=== PATIENT | male | born 1945 ===

== ENCOUNTER → 2021-06-05 | Outpatient (CLI) | payer OTHER | END | disposition home or self-care (01) | LOC: LAB SHORT 11:39 | DX: L57.0 Actinic keratosis (principal) | CPT/HCPCS: 88305 ==

== ENCOUNTER 2022-05-29 11:49 | Emergency (ER) | payer OTHER ==
[~2022-05-29] VITALS: Ht 182.9 cm; Wt 77.1 kg
== END 2022-05-29 13:58 | disposition home or self-care (01) ==
LOC: ER 11:49
DX: H61.22 Impacted cerumen, left ear (principal); E11.9 Type 2 diabetes mellitus without complications
CPT/HCPCS: A9270

== ENCOUNTER 2023-06-30 09:54 | Emergency (ER) | payer OTHER ==
[~2023-06-30] VITALS: Ht 182.9 cm; Wt 77.1 kg
[2023-06-30 10:57] LABS: BASOPHILS ABSOLUTE AUTO 0.07 K/mm3 (0.00-0.23); BASOPHILS PERCENT AUTO 1 % (0-2); EOSINOPHILS ABSOLUTE AUTO 0.06 K/mm3 (0.00-0.68); EOSINOPHILS PERCENT AUTO 1 % (0-6); Hematocrit 34.2 % (37.0-53.0); Hemoglobin 11.6 g/dL (13.5-17.5); IMMATURE GRAN ABSOLUTE AUTO 0.06 K/mm3 (0.00-0.10); IMMATURE GRAN PERCENT AUTO 1 % (0-1); LYMPHOCYTES ABSOLUTE AUTO 1.71 K/mm3 (0.84-5.20); LYMPHOCYTES PERCENT AUTO 14 % (21-46); MONOCYTES ABSOLUTE AUTO 0.63 K/mm3 (0.16-1.47); MONOCYTES PERCENT AUTO 5 % (4-13); Mean Corpuscular HGB 30.6 pg (26.0-34.0); Mean Corpuscular HGB Conc 33.9 g/dL (31.5-36.5); Mean Corpuscular Volume 90 fL (80-100); Mean Platelet Volume 9.6 fL (9.1-12.4); NEUTROPHILS ABSOLUTE AUTO 9.46 K/mm3 (1.96-9.15); NEUTROPHILS PERCENT AUTO 79 % (41-73); Platelet Count 320 K/mm3 (150-400); RDW Coefficient Variation 11.9 % (11.7-14.2); RDW Standard Deviation 39.2 fL (35.1-46.3); Red Blood Cell Count 3.79 M/mm3 (4.30-5.90); White Blood Cell Count 11.99 K/mm3 (4.00-11.30)
[2023-06-30 11:09] LABS: Albumin, Blood 3.3 g/dL (3.4-5.0); Albumin/Globulin Ratio 0.8 (0.8-1.8); Bilirubin, Total 1.2 mg/dL (0.1-1.0); Bun/Creatinine Ratio 20.8 (12.0-20.0); Calcium, Blood 9.5 mg/dL (8.5-10.1); Creatinine, Blood 1.06 mg/dL (0.60-1.20); Globulin, Blood 4.2 g/dL (2.2-4.0); Potassium, Blood 4.2 mmol/L (3.5-5.5); Total Protein, Blood 7.5 g/dL (6.4-8.2)
[2023-06-30] MEDS ORDERED: AMOX-CLAV 875-1 EAC1 PO (12:28)
[2023-06-30 13:15] VITALS: BP 124/67
== END 2023-06-30 13:36 | disposition home or self-care (01) ==
LOC: ER 09:54
PROVIDERS: Physician Assistant
DX: E11.621 Type 2 diabetes mellitus with foot ulcer (principal); L97.529 Non-pressure chronic ulcer of other part of left foot with unspecified severity; I10 Essential (primary) hypertension
CPT/HCPCS: 73620; 80053; 85025; 85651; 86141; 99283-25

== ENCOUNTER → 2023-06-30 | Outpatient (CLI) | payer OTHER ==
[~2023-06-30] MED LIST: AMOX-CLAV 875-1 EAC1 PO
== END | disposition home or self-care (01) ==
LOC: LAB 18:04 → LAB SHORT 18:04
DX: L03.116 Cellulitis of left lower limb (principal)
CPT/HCPCS: 87070; 87075; 87205

== ENCOUNTER 2023-07-20 16:11 | Emergency (ER) | payer OTHER ==
[~2023-07-20] VITALS: Ht 180.3 cm; Wt 77.1 kg
[2023-07-20] MEDS ORDERED: Lisinopril2.5 MG (16:20)
[2023-07-20] MEDS ORDERED: METFORMIN HCL500 M2 PO (16:20)
[2023-07-20] MEDS ORDERED: SEMGLEE (Y100 UNIT/2 SC (16:21)
[2023-07-20 16:44] LABS: BASOPHILS ABSOLUTE AUTO 0.11 K/mm3 (0.00-0.23); BASOPHILS PERCENT AUTO 1 % (0-2); EOSINOPHILS ABSOLUTE AUTO 0.22 K/mm3 (0.00-0.68); EOSINOPHILS PERCENT AUTO 1 % (0-6); Hematocrit 39.6 % (37.0-53.0); Hemoglobin 13.6 g/dL (13.5-17.5); IMMATURE GRAN ABSOLUTE AUTO 0.08 K/mm3 (0.00-0.10); IMMATURE GRAN PERCENT AUTO 0 % (0-1); LYMPHOCYTES ABSOLUTE AUTO 0.69 K/mm3 (0.84-5.20); LYMPHOCYTES PERCENT AUTO 3 % (21-46); MONOCYTES ABSOLUTE AUTO 0.91 K/mm3 (0.16-1.47); MONOCYTES PERCENT AUTO 5 % (4-13); Mean Corpuscular HGB 30.9 pg (26.0-34.0); Mean Corpuscular HGB Conc 34.3 g/dL (31.5-36.5); Mean Corpuscular Volume 90 fL (80-100); Mean Platelet Volume 10.1 fL (9.1-12.4); NEUTROPHILS ABSOLUTE AUTO 18.35 K/mm3 (1.96-9.15); NEUTROPHILS PERCENT AUTO 90 % (41-73); Platelet Count 295 K/mm3 (150-400); RDW Coefficient Variation 12.3 % (11.7-14.2); RDW Standard Deviation 40.3 fL (35.1-46.3); White Blood Cell Count 20.36 K/mm3 (4.00-11.30)
[2023-07-20 17:17] LABS: Albumin, Blood 3.7 g/dL (3.4-5.0); Albumin/Globulin Ratio 0.9 (0.8-1.8); Beta-hydroxybutyrate 4.4 mg/dL (0.2-2.8); Bun/Creatinine Ratio 24.8 (12.0-20.0); Calcium, Blood 9.3 mg/dL (8.5-10.1); Creatinine, Blood 1.13 mg/dL (0.60-1.20); Globulin, Blood 3.9 g/dL (2.2-4.0); Potassium, Blood 4.1 mmol/L (3.5-5.5); Total Protein, Blood 7.6 g/dL (6.4-8.2)
[2023-07-20 17:35] LABS: Influenza A, PCR NEGATIVE (NEGATIVE); Influenza B, PCR NEGATIVE (NEGATIVE); Resp Syncytial Virus, PCR NEGATIVE (NEGATIVE); SARS-Cov-2 (COVID-19) PCR, MMC NEGATIVE (NEGATIVE)
[2023-07-20 18:40] LABS: Source, Urine Clean Catch
[2023-07-20 18:43] LABS: Bilirubin, Urine Neg (Neg); Blood, Urine 1+ (Neg); Glucose Qualitative, Urine 4+ (Neg); Ketones, Urine Neg (Neg); Leukocyte Esterase, Urine Neg (Neg); Nitrite, Urine Neg (Neg); Protein, Urine 1+ (Neg); Urobilinogen, Urine NORM (Normal)
[2023-07-20 18:50] LABS: Appearance, Urine Clear (Clear); Color, Urine Yellow (P-Yellow)
[2023-07-20 18:52] LABS: Red Blood Cells, Urine 0-2 /hpf (0-2)
[2023-07-20 18:53] LABS: Amorphous Light (0-Heavy); Bacteria Rare /hpf; Squamous Epithelial Cells Not Seen /hpf (Few)
[2023-07-20 19:00] VITALS: BP 122/72
== END 2023-07-20 19:26 | disposition home or self-care (01) ==
LOC: ER 16:11
PROVIDERS: Emergency Medicine
DX: E11.65 Type 2 diabetes mellitus with hyperglycemia (principal); E11.621 Type 2 diabetes mellitus with foot ulcer; L97.429 Non-pressure chronic ulcer of left heel and midfoot with unspecified severity; D72.829 Elevated white blood cell count, unspecified; Z20.822 Contact with and (suspected) exposure to COVID-19; Z79.899 Other long term (current) drug therapy; Z79.84 Long term (current) use of oral hypoglycemic drugs; Z79.4 Long term (current) use of insulin
CPT/HCPCS: 0241U; 73620; 80053; 81001; 82010; 82947; 85025; 87086; 93005; 93010; 96360; 96361; 99285-25; J7120

== ENCOUNTER 2023-07-29 19:10 | Emergency (ER) | payer OTHER ==
[~2023-07-29] VITALS: Ht 182.9 cm; Wt 75.8 kg
[~2023-07-29 19:10] MED LIST changes: +Lisinopril2.5 MG; +METFORMIN HCL500 M2 PO; +SEMGLEE (Y100 UNIT/2 SC
[2023-07-29 19:31] VITALS: BP 156/77
[2023-07-29 20:01] LABS: BASOPHILS ABSOLUTE AUTO 0.05 K/mm3 (0.00-0.23); BASOPHILS PERCENT AUTO 0 % (0-2); EOSINOPHILS ABSOLUTE AUTO 0.01 K/mm3 (0.00-0.68); EOSINOPHILS PERCENT AUTO 0 % (0-6); Hematocrit 33.3 % (37.0-53.0); Hemoglobin 11.6 g/dL (13.5-17.5); IMMATURE GRAN ABSOLUTE AUTO 0.08 K/mm3 (0.00-0.10); IMMATURE GRAN PERCENT AUTO 1 % (0-1); LYMPHOCYTES ABSOLUTE AUTO 0.93 K/mm3 (0.84-5.20); LYMPHOCYTES PERCENT AUTO 6 % (21-46); MONOCYTES ABSOLUTE AUTO 0.51 K/mm3 (0.16-1.47); MONOCYTES PERCENT AUTO 3 % (4-13); Mean Corpuscular HGB Conc 34.8 g/dL (31.5-36.5); Mean Corpuscular Volume 89 fL (80-100); Mean Platelet Volume 9.8 fL (9.1-12.4); NEUTROPHILS ABSOLUTE AUTO 13.85 K/mm3 (1.96-9.15); NEUTROPHILS PERCENT AUTO 90 % (41-73); Platelet Count 300 K/mm3 (150-400); RDW Coefficient Variation 12.4 % (11.7-14.2); RDW Standard Deviation 40.3 fL (35.1-46.3); Red Blood Cell Count 3.74 M/mm3 (4.30-5.90); White Blood Cell Count 15.43 K/mm3 (4.00-11.30)
[2023-07-29 20:29] LABS: Albumin/Globulin Ratio 0.7 (0.8-1.8); Bilirubin, Total 1.5 mg/dL (0.1-1.0); Bun/Creatinine Ratio 25.7 (12.0-20.0); Calcium, Blood 9.2 mg/dL (8.5-10.1); Creatinine, Blood 1.01 mg/dL (0.60-1.20); Globulin, Blood 4.6 g/dL (2.2-4.0); Potassium, Blood 4.4 mmol/L (3.5-5.5); Total Protein, Blood 7.6 g/dL (6.4-8.2)
== END 2023-07-29 23:40 | disposition left against medical advice (07) ==
LOC: ER 19:10
PROVIDERS: Student in an Organized Health Care Education/Training Program
DX: R53.1 Weakness (principal); Z53.21 Procedure and treatment not carried out due to patient leaving prior to being seen by health care provider
CPT/HCPCS: 80053; 82947; 85025

== ENCOUNTER 2023-07-31 16:51 | Inpatient (IN) | payer OTHER ==
[~2023-07-31] VITALS: Ht 182.9 cm; Wt 79.6 kg
[~2023-07-31 16:51] MED LIST changes: -ATORVASTATIN CA20 MG PO; -DONE5 PO
[2023-07-31] MEDS ORDERED: ATORVASTATIN CA20 MG PO (17:20)
[2023-07-31 17:49] LABS: BASOPHILS ABSOLUTE AUTO 0.04 K/mm3 (0.00-0.23); BASOPHILS PERCENT AUTO 0 % (0-2); EOSINOPHILS PERCENT AUTO 0 % (0-6); Hematocrit 29.3 % (37.0-53.0); IMMATURE GRAN ABSOLUTE AUTO 0.22 K/mm3 (0.00-0.10); IMMATURE GRAN PERCENT AUTO 1 % (0-1); LYMPHOCYTES ABSOLUTE AUTO 0.76 K/mm3 (0.84-5.20); LYMPHOCYTES PERCENT AUTO 3 % (21-46); MONOCYTES ABSOLUTE AUTO 0.86 K/mm3 (0.16-1.47); MONOCYTES PERCENT AUTO 4 % (4-13); Mean Corpuscular HGB 30.8 pg (26.0-34.0); Mean Corpuscular HGB Conc 34.1 g/dL (31.5-36.5); Mean Corpuscular Volume 90 fL (80-100); Mean Platelet Volume 9.7 fL (9.1-12.4); NEUTROPHILS ABSOLUTE AUTO 21.33 K/mm3 (1.96-9.15); NEUTROPHILS PERCENT AUTO 92 % (41-73); Platelet Count 299 K/mm3 (150-400); RDW Coefficient Variation 12.6 % (11.7-14.2); RDW Standard Deviation 41.6 fL (35.1-46.3); Red Blood Cell Count 3.25 M/mm3 (4.30-5.90); White Blood Cell Count 23.21 K/mm3 (4.00-11.30)
[2023-07-31 18:10] LABS: Albumin, Blood 2.5 g/dL (3.4-5.0); Albumin/Globulin Ratio 0.6 (0.8-1.8); Bilirubin, Total 0.6 mg/dL (0.1-1.0); Bun/Creatinine Ratio 29.5 (12.0-20.0); Calcium, Blood 8.6 mg/dL (8.5-10.1); Creatinine, Blood 1.49 mg/dL (0.60-1.20); Globulin, Blood 4.2 g/dL (2.2-4.0); Total Protein, Blood 6.7 g/dL (6.4-8.2)
[2023-07-31 21:11] VITALS: BP 107/46
[2023-07-31] MEDS ORDERED: DONE5 PO (21:32)
--- NOTE | 2023-08-01 02:05 | NUR ---
Admission Note: Patient admitted to room 360 at 2100 this evening from the ER. 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 He has had the ulcer for about 6 months. There is a red area around the ulcer that extends over the top of his foot and underneath his foot. A podietry consult was called to the answering service for Dr. Worley. The patient had a lactic acid of 2.1 in the ER. It was repeated when he gotto the floor and remained at 2.1. He recieved a bolus of Normal saline which was started in the ER and another 1000 cc bolus after being admitted to his room. He was given a dose of vancomycin in the ER. He was given a 2 gram dose of ceftriaxone after his admission. Patient was able to stand and be weighed on the stand up scales. He does complain of pain in his left foot with movement or when touched. A skin assessment was done and patient had an area noted on his sacrum that was a dime sized raised area that was printing supplies sales representative than surrounding skin and scaley in appearance. His respirations were regular and unlabored on room air. He stated that his last BM was yesterday. He has a 20 g IV to both wrist. Normal saline is currently running at 75cc/hr. His blood sugar was 266. He recieved his bedtime dose of 26 units of Glargin insulin per insulin pen. His hands shake when he tries to hold things. He has some generalized weakness. He lives at home with his . Patient was alert and oriented at the time of admission. Later in the shift, the patient tried to get up several times unassisted and did not remember to use the call light. Bed alarm was turn on due to trying to get up.
[2023-08-01 02:56] VITALS: BP 119/79
--- NOTE | 2023-08-01 04:26 | NUR ---
Shift summary: Patient was alert and oriented at time of admission. He has had some confusion throughout the night and attempted to get up unassisted at times. On admission patient was able to stand independently on the stand up scales. He has gotten weaker during the night and required two person assist to stand and use the urinal. Requires assistance with holding the urinal due to his hands shaking. He will need a gait belt and 2 person assist for safety. He has normal saline at 75cc/hr. His glucose level in the ER was 331. He was rechecked prior to his HS dose of insulin and his glucose level was 266. He recieved his scheduled dose of Glargin 26 u at HS. He reported that his appetite has not been good and he has lost at least 10 pounds over the past few weeks. His temp was 100.2 at 4 am vital sign check.
[2023-08-01 05:30] LABS: BASOPHILS ABSOLUTE AUTO 0.04 K/mm3 (0.00-0.23); BASOPHILS PERCENT AUTO 0 % (0-2); EOSINOPHILS ABSOLUTE AUTO 0.03 K/mm3 (0.00-0.68); EOSINOPHILS PERCENT AUTO 0 % (0-6); Hematocrit 27.5 % (37.0-53.0); Hemoglobin 9.5 g/dL (13.5-17.5); IMMATURE GRAN ABSOLUTE AUTO 0.11 K/mm3 (0.00-0.10); IMMATURE GRAN PERCENT AUTO 1 % (0-1); LYMPHOCYTES ABSOLUTE AUTO 1.03 K/mm3 (0.84-5.20); LYMPHOCYTES PERCENT AUTO 6 % (21-46); MONOCYTES ABSOLUTE AUTO 0.66 K/mm3 (0.16-1.47); MONOCYTES PERCENT AUTO 4 % (4-13); Mean Corpuscular HGB 30.7 pg (26.0-34.0); Mean Corpuscular HGB Conc 34.5 g/dL (31.5-36.5); Mean Corpuscular Volume 89 fL (80-100); Mean Platelet Volume 10.2 fL (9.1-12.4); NEUTROPHILS PERCENT AUTO 89 % (41-73); Platelet Count 306 K/mm3 (150-400); RDW Coefficient Variation 12.6 % (11.7-14.2); RDW Standard Deviation 40.7 fL (35.1-46.3); Red Blood Cell Count 3.09 M/mm3 (4.30-5.90); White Blood Cell Count 17.07 K/mm3 (4.00-11.30)
[2023-08-01 05:48] LABS: International Normalized Ratio 1.09; Prothrombin Time Results 11.4 Sec (9.7-11.5)
[2023-08-01 06:01] LABS: Bun/Creatinine Ratio 28.7 (12.0-20.0); Calcium, Blood 8.6 mg/dL (8.5-10.1); Creatinine, Blood 1.15 mg/dL (0.60-1.20); Potassium, Blood 3.6 mmol/L (3.5-5.5)
[2023-08-01 07:46] VITALS: BP 105/60
--- NOTE | 2023-08-01 11:40 | NUR ---
DR. DODD ARRIVED TO PT ROOM FOR CONSULT ON L. LOWER EXTREMITY. STAT MRI ORDERED ON L. FOOT AND L. ANKLE. PT MADE NPO FOR POSSIBLE BKA.
[2023-08-01 17:33] VITALS: BP 119/68
[2023-08-01 17:44] VITALS: BP 119/68
--- NOTE | 2023-08-01 19:15 | NUR ---
SHIFT SUMMARY: PT A&O X3. PT MORE ALERT THIS AM BUT HAS BECOME FUTHER CONFUSED THROUGHOUT THE DAY. DR. DODD ARRIVED TO CONSULT THIS AM. ORDERED FOR STAT MRI ON L. FOOT AND L. ANKLE FOR GAS GANGRENE. DR. NEGRETE ARRIVED TO PT ROOM THIS EVENING HIGHLY RECOMMENDING LEFT BKA. PLAN FOR SURGERY TOMORROW MORNING. NPO AFTER MIDNIGHT. PT HAD FALL @ 1725 WHILE SELF TRANSFERRING BACK TO BED FROM BATHROOM. PT EDUCATED TO USE PULL CORD PRIOR TO STAFF LEAVING BATHROOM BUT DID NOT DO SO. DR. LEONARD NOTIFIED. NO C/O PAIN. PT STATED HE DID NOT HIT HEAD. CALL LIGHT IN REACH. BED IN LOWEST POSITION. BED ALARM ON. NO NEEDS AT THIS TIME.
[2023-08-01 19:33] VITALS: BP 123/59
[2023-08-02] VITALS (18 sets, daily range): BP systolic 91–136; BP diastolic 52–79
--- NOTE | 2023-08-02 03:37 | NUR ---
PT AM VITALS TAKEN AND PT WAS MAINTAINING HR IN MIN TO HIGH 150'S. HOSPITALIST NOTIFIED AND TELEMETRY AND NS 500 ML BOLUS ORDERED. SHORTLY AFTER BOLUS STARTED HR WENT INTO TO SINUS RHYTHM IN 90'S, HOSPITALIST NOTIFIED AND INSTRUCTIONS GIVEN TO COMPLETE BOLUS AND CONTINUE TO MONITOR HR PER UNIT PROTOCOL.
[2023-08-02 04:40] LABS: BASOPHILS ABSOLUTE AUTO 0.05 K/mm3 (0.00-0.23); BASOPHILS PERCENT AUTO 0 % (0-2); EOSINOPHILS ABSOLUTE AUTO 0.01 K/mm3 (0.00-0.68); EOSINOPHILS PERCENT AUTO 0 % (0-6); Hematocrit 27.3 % (37.0-53.0); Hemoglobin 9.5 g/dL (13.5-17.5); IMMATURE GRAN PERCENT AUTO 1 % (0-1); LYMPHOCYTES ABSOLUTE AUTO 1.06 K/mm3 (0.84-5.20); LYMPHOCYTES PERCENT AUTO 7 % (21-46); MONOCYTES ABSOLUTE AUTO 0.82 K/mm3 (0.16-1.47); MONOCYTES PERCENT AUTO 6 % (4-13); Mean Corpuscular HGB 30.4 pg (26.0-34.0); Mean Corpuscular HGB Conc 34.8 g/dL (31.5-36.5); Mean Corpuscular Volume 88 fL (80-100); Mean Platelet Volume 9.3 fL (9.1-12.4); NEUTROPHILS ABSOLUTE AUTO 12.83 K/mm3 (1.96-9.15); NEUTROPHILS PERCENT AUTO 86 % (41-73); Platelet Count 307 K/mm3 (150-400); RDW Coefficient Variation 12.9 % (11.7-14.2); RDW Standard Deviation 41.2 fL (35.1-46.3); Red Blood Cell Count 3.12 M/mm3 (4.30-5.90); White Blood Cell Count 14.87 K/mm3 (4.00-11.30)
--- NOTE | 2023-08-02 04:50 | NUR ---
SHIFT SUMMARY PT ADMIT WITH CELLULITIS. GAS GANGRENE ON LLE. BKA SURGERY SCHEDULED FOR THIS AM. NPO SINCE MIDNIGHT. PT HAD APROX. 10 MINUTE RUN OF SINUS TACHY IN 150S. AUTO REGULATED TO 90S. 500ML BOLUS ORDERED AND GIVEN. TELE ORDERED. PT HAS TREMBLING IN BUE. PT SLEPT MOST OF EVENING.
[2023-08-02 05:12] LABS: Albumin, Blood 2.1 g/dL (3.4-5.0); Anion Gap 8 mmol/L (6-16); Blood Urea Nitrogen 18 mg/dL (8-24); Bun/Creatinine Ratio 17.8 (12.0-20.0); CO2, Blood 24 mmol/L (21-32); Calcium, Blood 8.5 mg/dL (8.5-10.1); Chloride, Blood 104 mmol/L (98-108); Creatinine, Blood 1.01 mg/dL (0.60-1.20); Glomerular Filtration Rate 76 (60-); Glucose, Blood 203 mg/dL (70-99); Phosphorus, Blood 1.8 mg/dL (2.5-4.9); Potassium, Blood 3.4 mmol/L (3.5-5.5); Sodium, Blood 136 mmol/L (136-145); Vancomycin, Random 15.1 ug/mL
--- NOTE | 2023-08-02 11:36 | NUR ---
HANDOFF REPORT OR STAFF DID NOT WANT POTASSIUM STARTED PRIOR TO SURGERY, SO MED WAS NOT GIVEN. VANCO STARTED PRIOR TO SURGERY. REPORT GIVEN TO SURGICAL FLOOR STAFF RAYMOND
--- NOTE | 2023-08-02 18:17 | NUR ---
SHIFT SUMMARY POD0 L BKA. PATIENT IS AOX3. FORGETFUL OF SITUATION. FOLLOWS DIRECTIONS. LLE INCISION WITH ABD AND KITTY WRAP. DRESSING IS C/D/I. ELEVATED ON PILLOWS. PATIENT HAS REDDNESS ON SACRUM AND MEPILEX PLACED. TURN Q2. BED ALARM IS ON. PATIENT DID USE CALL LIGHT TO USE URINAL. WAS UNABLE TO VOID. BLADDER SCAN REVEALED >1200ML. STRAIGHT CATH PREFORMED. PATIENT TOLERATED WELL. ABLE TO TOLERATE PO INTAKE. DENIES PAIN. PATIENT DID RECIEVE KETAMINE IN OR AND IS SOMEWHAT GROGGY POST-OP. VSS. CURRENTYL ON 3L NC. SATS > 95%. DENIES CP/SOB. TELE IN PLACE. WILL REPORT TO DAY RN.
[2023-08-03 04:05] VITALS: BP 142/81
[2023-08-03 04:59] LABS: BASOPHILS ABSOLUTE AUTO 0.03 K/mm3 (0.00-0.23); BASOPHILS PERCENT AUTO 0 % (0-2); EOSINOPHILS ABSOLUTE AUTO 0.02 K/mm3 (0.00-0.68); EOSINOPHILS PERCENT AUTO 0 % (0-6); Hematocrit 27.8 % (37.0-53.0); Hemoglobin 9.4 g/dL (13.5-17.5); IMMATURE GRAN ABSOLUTE AUTO 0.08 K/mm3 (0.00-0.10); IMMATURE GRAN PERCENT AUTO 1 % (0-1); LYMPHOCYTES ABSOLUTE AUTO 1.01 K/mm3 (0.84-5.20); LYMPHOCYTES PERCENT AUTO 8 % (21-46); MONOCYTES ABSOLUTE AUTO 0.61 K/mm3 (0.16-1.47); MONOCYTES PERCENT AUTO 5 % (4-13); Mean Corpuscular HGB 29.9 pg (26.0-34.0); Mean Corpuscular HGB Conc 33.8 g/dL (31.5-36.5); Mean Corpuscular Volume 89 fL (80-100); Mean Platelet Volume 9.7 fL (9.1-12.4); NEUTROPHILS ABSOLUTE AUTO 10.39 K/mm3 (1.96-9.15); NEUTROPHILS PERCENT AUTO 86 % (41-73); Platelet Count 336 K/mm3 (150-400); RDW Coefficient Variation 12.9 % (11.7-14.2); RDW Standard Deviation 41.4 fL (35.1-46.3); Red Blood Cell Count 3.14 M/mm3 (4.30-5.90); White Blood Cell Count 12.14 K/mm3 (4.00-11.30)
[2023-08-03 06:05] LABS: Anion Gap 7 mmol/L (6-16); Blood Urea Nitrogen 17 mg/dL (8-24); Bun/Creatinine Ratio 17.4 (12.0-20.0); CO2, Blood 25 mmol/L (21-32); Calcium, Blood 8.5 mg/dL (8.5-10.1); Chloride, Blood 103 mmol/L (98-108); Creatinine, Blood 0.98 mg/dL (0.60-1.20); Glomerular Filtration Rate 78 (60-); Glucose, Blood 256 mg/dL (70-99); Phosphorus, Blood 2.6 mg/dL (2.5-4.9); Potassium, Blood 3.9 mmol/L (3.5-5.5); Sodium, Blood 135 mmol/L (136-145)
[2023-08-03 07:09] VITALS: BP 143/68
--- NOTE | 2023-08-03 07:17 | NUR ---
SHIFT SUMMARY NOC. PT A/O X2-3 THIS SHIFT. PT DENIED PAIN IN LEFT BKA, KITTY WRAP IS C/D/I. PT HAD URINARY RETENTION AND HAD A STRAIGHT CATH WITH 1525 OUT. PT RESTED WITH EYES CLOSED AND CALL LIGHT IN REACH. BED ALARM WAS SET FOR SAFETY PT FORGETS LIMITATIONS.
--- NOTE | 2023-08-03 07:28 | NUR ---
ASSUMED CARE: PT RESTING QUIETLY IN BED AT THIS TIME. NSR ON TELE WITH PVCS. NO ACUTE NEEDS OR CONCERNS AT PRESENT
--- NOTE | 2023-08-03 14:51 | NUR ---
CALL TO DR LEONARD TO RELAY THAT PT HAS REQUIRED THREE STRAIGHT CATHS FOR BLADDER SCANS GREATER THAN [address] INSTRUCTED TO INSERT SCHULTZ CATH AND STARTED PT ON FLOMAX. SEE ORDERS.
[2023-08-03 14:59] VITALS: BP 132/76
[2023-08-03 15:29] LABS: Source, Urine Foley catheter
[2023-08-03 15:36] LABS: Appearance, Urine Clear (Clear); Bilirubin, Urine Neg (Neg); Blood, Urine 5+ (Neg); Color, Urine Yellow (P-Yellow); Glucose Qualitative, Urine 4+ (Neg); Ketones, Urine 2+ (Neg); Leukocyte Esterase, Urine Neg (Neg); Nitrite, Urine Neg (Neg); Protein, Urine 2+ (Neg); Urobilinogen, Urine NORM (Normal)
[2023-08-03 15:48] LABS: Bacteria Mod /hpf; Squamous Epithelial Cells Rare /hpf (Few)
[2023-08-03 15:49] LABS: Mucus Light (0-Heavy)
--- NOTE | 2023-08-03 17:24 | NUR ---
TELE CALLED AND STATED THAT PT WAS HAVING COUPLETS AND TRIPLETS OF PVCS. CALL TO DR LEONARD AND REVIEWED LABS. ORDERED FOR STAT LABS. NO FURTHER ORDERS AT THIS TIME.
--- NOTE | 2023-08-03 18:07 | NUR ---
SHIFT SUMMARY: PT IS POD # 1 FROM BKA. AWAITING PT/OT FOR EVALUATION. MEDICATED X1 FOR PAIN. AWAITING LAB RESULTS TO SEE IF CAUSE OF PVCS CAN BE IDENTIFIED. PT ASYMPTOMATIC DURING EVENT. NO ACUTE NEEDS OR CONCERNS AT THIS TIME.
[2023-08-03 18:14] LABS: Anion Gap 9 mmol/L (6-16); Blood Urea Nitrogen 19 mg/dL (8-24); Bun/Creatinine Ratio 16.5 (12.0-20.0); CO2, Blood 26 mmol/L (21-32); Calcium, Blood 8.6 mg/dL (8.5-10.1); Chloride, Blood 101 mmol/L (98-108); Creatinine, Blood 1.15 mg/dL (0.60-1.20); Glomerular Filtration Rate 65 (60-); Glucose, Blood 227 mg/dL (70-99); Magnesium, Blood 1.3 mg/dL (1.6-2.4); Phosphorus, Blood 2.9 mg/dL (2.5-4.9); Potassium, Blood 3.8 mmol/L (3.5-5.5); Sodium, Blood 136 mmol/L (136-145)
[2023-08-03 19:03] VITALS: BP 140/75
--- NOTE | 2023-08-04 01:28 | NUR ---
QUESTION FROM LAB. T/C RECEIVED FROM DEANNA COY IN THE LAB REGARDING PT'S CBC, CMP, AND VANCO LABS. DISCUSSED WITH OPEN HEARTH MELTERYINA ARENAS TO OK CBC, CMP, AND VANCO TO BE SCHEDULED FOR 0700 TO SAVE PT AN ADDITIONAL DRAW. DEANNA VERBALIZED UNDERSTANDING.
--- NOTE | 2023-08-04 04:01 | NUR ---
SHIFT SUMMARY NOC. PT POD 2 FOR LEFT BKA. PT'S KITTY WRAP IS C/D/I. PT A/O X3 THIS SHIFT. PT IS FORGETFUL OF LIMITATIONS AT TIMES AND SET OFF THE BED ALARM X1. PT NOT USING HIS CALL LIGHT, ENCOURAGED USE. PT DENIES PAIN IN STUMP. PT RECEIVED STAT DOSE OF MAG SULFATE IV PIGGYBACK AND ORAL POTASSIUM THIS SHIFT. PT'S SCHULTZ IS BELOW BLADDER LEVEL AND PRODUCING URINE OUTPUT. PT RESTED WITH EYES CLOSED AND CALL LIGHT IN REACH.
[2023-08-04 04:11] VITALS: BP 117/66
[2023-08-04 04:15] VITALS: BP 117/66
--- NOTE | 2023-08-04 06:44 | NUR ---
UPDATE SHIFT SUMMARY. PT REMOVED IV FROM HIS LEFT WRIST. FOUND CATHETER TIP INTACT. PROPERTY OFFICER PLACED NEW LEFT WRIST IV SITE. EDUCATION PROVIDED TO NOT REMOVE IV ACCESS.
[2023-08-04 07:16] LABS: BASOPHILS ABSOLUTE AUTO 0.06 K/mm3 (0.00-0.23); BASOPHILS PERCENT AUTO 1 % (0-2); EOSINOPHILS ABSOLUTE AUTO 0.13 K/mm3 (0.00-0.68); EOSINOPHILS PERCENT AUTO 1 % (0-6); Hemoglobin 10.1 g/dL (13.5-17.5); IMMATURE GRAN ABSOLUTE AUTO 0.06 K/mm3 (0.00-0.10); IMMATURE GRAN PERCENT AUTO 1 % (0-1); LYMPHOCYTES ABSOLUTE AUTO 1.43 K/mm3 (0.84-5.20); LYMPHOCYTES PERCENT AUTO 13 % (21-46); MONOCYTES PERCENT AUTO 5 % (4-13); Mean Corpuscular HGB 30.2 pg (26.0-34.0); Mean Corpuscular HGB Conc 34.8 g/dL (31.5-36.5); Mean Corpuscular Volume 87 fL (80-100); Mean Platelet Volume 9.1 fL (9.1-12.4); NEUTROPHILS ABSOLUTE AUTO 8.85 K/mm3 (1.96-9.15); NEUTROPHILS PERCENT AUTO 80 % (41-73); Platelet Count 393 K/mm3 (150-400); RDW Coefficient Variation 12.7 % (11.7-14.2); RDW Standard Deviation 40.8 fL (35.1-46.3); Red Blood Cell Count 3.34 M/mm3 (4.30-5.90); White Blood Cell Count 11.13 K/mm3 (4.00-11.30)
[2023-08-04 07:40] LABS: Anion Gap 7 mmol/L (6-16); Blood Urea Nitrogen 14 mg/dL (8-24); Bun/Creatinine Ratio 14.8 (12.0-20.0); CO2, Blood 28 mmol/L (21-32); Calcium, Blood 8.6 mg/dL (8.5-10.1); Chloride, Blood 102 mmol/L (98-108); Creatinine, Blood 0.95 mg/dL (0.60-1.20); Glomerular Filtration Rate 81 (60-); Glucose, Blood 177 mg/dL (70-99); Potassium, Blood 3.6 mmol/L (3.5-5.5); Sodium, Blood 137 mmol/L (136-145); Vancomycin, Trough 17.7 ug/mL (5.0-10.0)
[2023-08-04 08:21] VITALS: BP 110/60
[2023-08-04 16:08] VITALS: BP 121/75
--- NOTE | 2023-08-04 17:00 | NUR ---
HAMILTON VALENZUELA IN TO SEE PT.
--- NOTE | 2023-08-04 19:27 | NUR ---
SUMMARY NO ACUTE CHANGES T/O SHIFT. MEDICATED ONCE DURING SHIFT FOR PAIN TO L BKA. PT APPEARS FORGETFUL OF LIMITATIONS/BED ALARM ON FOR SAFETY. PT WORKED WITH PHYSICAL THERAPY AND STOOD AND PIVOTED TWICE TO BSC DURING SHIFT. HAMILTON VALENZUELA CHANGED PT'S DRESSING THIS AFTERNOON. CALL LIGHT IN REACH.
[2023-08-04 19:39] VITALS: BP 115/63
[2023-08-05 03:41] VITALS: BP 124/64
[2023-08-05 04:52] LABS: BASOPHILS ABSOLUTE AUTO 0.05 K/mm3 (0.00-0.23); BASOPHILS PERCENT AUTO 1 % (0-2); EOSINOPHILS ABSOLUTE AUTO 0.24 K/mm3 (0.00-0.68); EOSINOPHILS PERCENT AUTO 2 % (0-6); Hematocrit 27.7 % (37.0-53.0); Hemoglobin 9.6 g/dL (13.5-17.5); IMMATURE GRAN ABSOLUTE AUTO 0.08 K/mm3 (0.00-0.10); IMMATURE GRAN PERCENT AUTO 1 % (0-1); LYMPHOCYTES ABSOLUTE AUTO 1.49 K/mm3 (0.84-5.20); LYMPHOCYTES PERCENT AUTO 14 % (21-46); MONOCYTES ABSOLUTE AUTO 0.63 K/mm3 (0.16-1.47); MONOCYTES PERCENT AUTO 6 % (4-13); Mean Corpuscular HGB 30.3 pg (26.0-34.0); Mean Corpuscular HGB Conc 34.7 g/dL (31.5-36.5); Mean Corpuscular Volume 87 fL (80-100); Mean Platelet Volume 9.1 fL (9.1-12.4); NEUTROPHILS ABSOLUTE AUTO 8.37 K/mm3 (1.96-9.15); NEUTROPHILS PERCENT AUTO 77 % (41-73); Platelet Count 441 K/mm3 (150-400); RDW Coefficient Variation 12.7 % (11.7-14.2); RDW Standard Deviation 40.8 fL (35.1-46.3); Red Blood Cell Count 3.17 M/mm3 (4.30-5.90); White Blood Cell Count 10.86 K/mm3 (4.00-11.30)
--- NOTE | 2023-08-05 05:45 | NUR ---
SHIFT SUMMARY POD 3-L BKA. DRESSING & STUMP SOCK CHANGED 08/04 DAY SHIFT BY PROVIDER, STILL C/D/I. LLE ELEVATED ON PILLOW, PT ABLE TO RAISE LEG OFF BED, DENIES ANY PAIN @THIS TIME. AOX3, FORGETFUL @TIMES-FOUND PT c IV TEGADERM IN HAND TRYING TO PULL OUT IV. PLACED NEW TEGADERM. VSS. TELE NSR HR 80. HS CBG @261, PROVIDED COVERAGE. SCHULTZ PATENT & DRAINING CLEAR YELLOW URINE. NO BM THIS SHIFT. BED ALARM & CALL LIGHT IN REACH, WILL MONITOR.
[2023-08-05 05:49] LABS: Albumin, Blood 1.9 g/dL (3.4-5.0); Albumin/Globulin Ratio 0.4 (0.8-1.8); Bilirubin, Total 0.4 mg/dL (0.1-1.0); Bun/Creatinine Ratio 17.9 (12.0-20.0); Calcium, Blood 8.6 mg/dL (8.5-10.1); Creatinine, Blood 1.06 mg/dL (0.60-1.20); Globulin, Blood 4.3 g/dL (2.2-4.0); Potassium, Blood 3.8 mmol/L (3.5-5.5); Total Protein, Blood 6.2 g/dL (6.4-8.2)
[2023-08-05 07:25] VITALS: BP 128/60
[2023-08-05 14:39] VITALS: BP 112/71
--- NOTE | 2023-08-05 16:06 | NUR ---
SUMMARY NO ACUTE CHANGES T/O SHIFT. PT SAT UP IN CHAIR FOR PART OF DAY. SCHULTZ CATH DC'D AT APPROXIMATELY 1230. AWAITING FIRST VOID. STUMP SOCK CDI. CALL LIGHT IN REACH, BED ALARM ON.
[2023-08-05 19:20] VITALS: BP 103/54
--- NOTE | 2023-08-06 00:45 | NUR ---
BLADDER SCAN PT HAS NOT VOIDED SINCE D/C OF SCHULTZ AT NOON. BLADDER SCAN AT 0015 WAS OVER 850ML. PT WAS THEN ASKED IF NEEDED TO USE THE URINAL. PT WAS UNABLE TO GO. PT STRAIGHT CATH.
[2023-08-06 05:08] VITALS: BP 124/60
--- NOTE | 2023-08-06 05:23 | NUR ---
SHIFT SUMMARY POD 4 L BKA PT ABLE TO SLEEP T/O NIGHT. PAIN MANAGED PER EMAR. PT HAS NOT YET VOIDED BY SELF. WILL RECHECK BLADDER THIS AM. L STUMP HAS BEEN ELEVATED ON PILLOW ALL NIGHT, STUMP SOCK AND DRESSING C/D/I. PLAN TO D/C TO SNF TODAY. NO OTHER CONCERNS AT THIS TIME. CALL LIGHT WITHIN REACH
--- NOTE | 2023-08-06 06:36 | NUR ---
BLADDER SCAN PT GOT BLADDER SCANNED AND IT WAS AT 395ML. PT GOT STRAIGHT CATHED AGAIN.
[2023-08-06 06:48] LABS: BASOPHILS PERCENT AUTO 1 % (0-2); EOSINOPHILS ABSOLUTE AUTO 0.39 K/mm3 (0.00-0.68); EOSINOPHILS PERCENT AUTO 3 % (0-6); Hematocrit 28.6 % (37.0-53.0); Hemoglobin 9.7 g/dL (13.5-17.5); IMMATURE GRAN ABSOLUTE AUTO 0.15 K/mm3 (0.00-0.10); IMMATURE GRAN PERCENT AUTO 1 % (0-1); LYMPHOCYTES ABSOLUTE AUTO 1.38 K/mm3 (0.84-5.20); LYMPHOCYTES PERCENT AUTO 12 % (21-46); MONOCYTES ABSOLUTE AUTO 0.56 K/mm3 (0.16-1.47); MONOCYTES PERCENT AUTO 5 % (4-13); Mean Corpuscular HGB 29.7 pg (26.0-34.0); Mean Corpuscular HGB Conc 33.9 g/dL (31.5-36.5); Mean Corpuscular Volume 88 fL (80-100); Mean Platelet Volume 8.9 fL (9.1-12.4); NEUTROPHILS ABSOLUTE AUTO 8.94 K/mm3 (1.96-9.15); NEUTROPHILS PERCENT AUTO 78 % (41-73); Platelet Count 529 K/mm3 (150-400); RDW Coefficient Variation 12.8 % (11.7-14.2); RDW Standard Deviation 41.1 fL (35.1-46.3); Red Blood Cell Count 3.27 M/mm3 (4.30-5.90); White Blood Cell Count 11.52 K/mm3 (4.00-11.30)
[2023-08-06 07:05] LABS: Bun/Creatinine Ratio 17.8 (12.0-20.0); Calcium, Blood 9.2 mg/dL (8.5-10.1); Creatinine, Blood 1.18 mg/dL (0.60-1.20); Potassium, Blood 3.9 mmol/L (3.5-5.5)
[2023-08-06 07:24] VITALS: BP 127/57
[2023-08-06 09:06] LABS: Source, Urine Foley catheter
[2023-08-06 09:16] LABS: Appearance, Urine Hazy (Clear); Bilirubin, Urine Neg (Neg); Blood, Urine 2+ (Neg); Color, Urine Yellow (P-Yellow); Glucose Qualitative, Urine Neg (Neg); Ketones, Urine Neg (Neg); Leukocyte Esterase, Urine 2+ (Neg); Nitrite, Urine Neg (Neg); Protein, Urine Neg (Neg); Urobilinogen, Urine NORM (Normal)
[2023-08-06 09:48] LABS: WBC Cast 0-2 /lpf (0)
[2023-08-06 09:49] LABS: Bacteria Few /hpf; Renal Epithelial Rare /hpf (0-Rare)
[2023-08-06 09:51] LABS: Squamous Epithelial Cells Rare /hpf (Few); Transitional Epithelial Cells Rare /hpf (0-Rare)
[2023-08-06 15:33] VITALS: BP 115/60
--- NOTE | 2023-08-06 16:47 | NUR ---
[facility] left with transport, took belongings with her. pt worked with therapy, require two person fwwdarlin. pt encouraged to continue working. tolerating diet well. all questions answered.
== END 2023-08-06 16:23 | DRG 853 ==
LOC: ER 16:51 → MEDS 20:04 → SURS 08-02 11:21
PROVIDERS: Emergency Medicine; Family Medicine; Internal Medicine; Nurse Practitioner Acute Care; Orthopaedic Surgery; ADMIT Internal Medicine
PROC: 3E03329 Introduction of Other Anti-infective into Peripheral Vein, Percutaneous Approach (ICD-10-PCS; 2023-07-31)
PROC: 0Y6J0Z1 Detachment at Left Lower Leg, High, Open Approach (ICD-10-PCS; principal; 2023-08-02 09:00)
DX: A41.9 Sepsis, unspecified organism (principal); A48.0 Gas gangrene; M86.8X7 Other osteomyelitis, ankle and foot; L97.526 Non-pressure chronic ulcer of other part of left foot with bone involvement without evidence of necrosis; L03.116 Cellulitis of left lower limb; E11.52 Type 2 diabetes mellitus with diabetic peripheral angiopathy with gangrene; E87.20 Acidosis, unspecified; E11.69 Type 2 diabetes mellitus with other specified complication; E11.65 Type 2 diabetes mellitus with hyperglycemia; E11.621 Type 2 diabetes mellitus with foot ulcer; E78.5 Hyperlipidemia, unspecified; I12.9 Hypertensive chronic kidney disease with stage 1 through stage 4 chronic kidney disease, or unspecified chronic kidney disease; E11.22 Type 2 diabetes mellitus with diabetic chronic kidney disease; N18.30 Chronic kidney disease, stage 3 unspecified; Z79.4 Long term (current) use of insulin; J98.2 Interstitial emphysema; E11.42 Type 2 diabetes mellitus with diabetic polyneuropathy; E11.3299 Type 2 diabetes mellitus with mild nonproliferative diabetic retinopathy without macular edema, unspecified eye; R53.1 Weakness; Z53.21 Procedure and treatment not carried out due to patient leaving prior to being seen by health care provider
CPT/HCPCS: 36415; 73630; 73720; 73723; 80048; 80053; 80069; 80202; 81001; 82947; 83036; 83605; 83735; 85025; 85610; 87040; 87086; 88307; 93005; 93010; 93926; 94760; 96361; 96365; 96366; 97110; 97112; 97161; 97166; 97530; 97535; 99284-25; A9270; A9579; J0171; J0696; J1170; J1650; J1815; J2704; J3010; J3370; J3475; J7030; J7040; J7050

== ENCOUNTER → 2023-07-31 | Outpatient (CLI) | payer OTHER ==
[~2023-07-31] MED LIST changes: +ATORVASTATIN CA20 MG PO; +DONE5 PO
[2023-07-31 15:17] LABS: Hematocrit 31.1 % (37.0-53.0); Hemoglobin 10.7 g/dL (13.5-17.5); Mean Corpuscular HGB 30.7 pg (26.0-34.0); Mean Corpuscular HGB Conc 34.4 g/dL (31.5-36.5); Mean Corpuscular Volume 89 fL (80-100); Mean Platelet Volume 9.8 fL (9.1-12.4); Platelet Count 302 K/mm3 (150-400); RDW Coefficient Variation 12.6 % (11.7-14.2); RDW Standard Deviation 41.1 fL (35.1-46.3); Red Blood Cell Count 3.49 M/mm3 (4.30-5.90); White Blood Cell Count 24.32 K/mm3 (4.00-11.30)
[2023-07-31 15:26] LABS: Albumin, Blood 2.7 g/dL (3.4-5.0); Albumin/Globulin Ratio 0.6 (0.8-1.8); Bilirubin, Total 0.8 mg/dL (0.1-1.0); Bun/Creatinine Ratio 21.8 (12.0-20.0); Calcium, Blood 9.4 mg/dL (8.5-10.1); Creatinine, Blood 2.02 mg/dL (0.60-1.20); Globulin, Blood 4.4 g/dL (2.2-4.0); Magnesium, Blood 1.5 mg/dL (1.6-2.4); Potassium, Blood 3.8 mmol/L (3.5-5.5); Total Protein, Blood 7.1 g/dL (6.4-8.2)
[2023-07-31 15:38] LABS: BAND PERCENT MAN 1 % (0-8); LYMPHOCYTES ABSOLUTE MAN 0.48 K/mm3 (0.84-5.20); LYMPHOCYTES PERCENT MAN 2 % (21-46); MONOCYTES ABSOLUTE MAN 0.24 K/mm3 (0.16-1.47); MONOCYTES PERCENT MAN 1 % (4-13); NEUTROPHILS ABSOLUTE MAN 23.59 K/mm3 (1.96-9.15); SEG NEUTROPHILS PERCENT MAN 96 % (41-73); TOTAL CELLS COUNTED 100
== END ==
LOC: LAB SHORT 15:09 → LAB 15:09
PROVIDERS: Emergency Medicine
DX: E11.9 Type 2 diabetes mellitus without complications (principal)
CPT/HCPCS: 80053; 83605; 83735; 85025

== ENCOUNTER 2025-06-15 03:03 | Emergency (ER) | payer OTHER ==
[~2025-06-15] VITALS: Ht 167.6 cm; Wt 95.2 kg
[2025-06-15 03:14] LABS: BASOPHILS ABSOLUTE AUTO 0.07 K/mm3 (0.00-0.23); BASOPHILS PERCENT AUTO 1 % (0-2); EOSINOPHILS ABSOLUTE AUTO 0.07 K/mm3 (0.00-0.68); EOSINOPHILS PERCENT AUTO 1 % (0-6); Hematocrit 32.2 % (37.0-53.0); Hemoglobin 10.9 g/dL (13.5-17.5); IMMATURE GRAN ABSOLUTE AUTO 0.07 K/mm3 (0.00-0.10); IMMATURE GRAN PERCENT AUTO 1 % (0-1); LYMPHOCYTES ABSOLUTE AUTO 0.98 K/mm3 (0.84-5.20); LYMPHOCYTES PERCENT AUTO 8 % (21-46); MONOCYTES ABSOLUTE AUTO 0.76 K/mm3 (0.16-1.47); MONOCYTES PERCENT AUTO 6 % (4-13); Mean Corpuscular HGB Conc 33.9 g/dL (31.5-36.5); Mean Corpuscular Volume 92 fL (80-100); NEUTROPHILS ABSOLUTE AUTO 10.90 K/mm3 (1.96-9.15); NEUTROPHILS PERCENT AUTO 85 % (41-73); NRBC ABSOLUTE 0.00 K/mm3 (0.00-0.02); NRBC Auto 0.0 /100 WBC (0.0-0.2); Platelet Count 243 K/mm3 (150-400); RDW Coefficient Variation 12.9 % (11.7-14.2); RDW Standard Deviation 42.8 fL (35.1-46.3)
[2025-06-15 03:33] LABS: Alanine Aminotransfer (ALT/SGP 13.0 U/L (12-78); Albumin, Blood 2.8 g/dL (3.4-5.0); Albumin/Globulin Ratio 0.8 (0.8-1.8); Anion Gap 9.0 mmol/L (3-11); Aspartate Aminotrans (AST/SGOT 8.0 U/L (12-37); Bilirubin, Total 0.7 mg/dL (0.1-1.0); Blood Urea Nitrogen 26.0 mg/dL (8-24); CO2, Blood 23.0 mmol/L (21-32); Calcium, Blood 8.2 mg/dL (8.5-10.1); Chloride, Blood 106.0 mmol/L (98-108); Creatinine, Blood 1.5 mg/dL (0.60-1.20); Globulin, Blood 3.3 g/dL (2.2-4.0); Glucose, Blood 443.0 mg/dL (70-99); Potassium, Blood 4.3 mmol/L (3.5-5.5); Sodium, Blood 134.0 mmol/L (136-145); Total Protein, Blood 6.1 g/dL (6.4-8.2)
[2025-06-15] MEDS ORDERED: Insulin Human Lispro 100 Units/ML 3ML Syringe SC ONE (04:10)
[2025-06-15 04:23] VITALS: BP 104/60
== END 2025-06-15 04:50 | disposition home or self-care (01) ==
LOC: ER 03:03
PROVIDERS: Emergency Medicine
DX: E11.65 Type 2 diabetes mellitus with hyperglycemia (principal); E78.5 Hyperlipidemia, unspecified; E11.22 Type 2 diabetes mellitus with diabetic chronic kidney disease; I12.9 Hypertensive chronic kidney disease with stage 1 through stage 4 chronic kidney disease, or unspecified chronic kidney disease; N18.30 Chronic kidney disease, stage 3 unspecified; Z79.84 Long term (current) use of oral hypoglycemic drugs; Z79.899 Other long term (current) drug therapy; Z79.4 Long term (current) use of insulin; N39.0 Urinary tract infection, site not specified
CPT/HCPCS: 70450; 80053; 82947; 85025; 87077; 87086; 87186; 99284-25; J1815

== ENCOUNTER → 2025-06-15 | Outpatient (CLI) | payer OTHER ==
[~2025-06-15] MED LIST changes: +ATORVASTATIN CA20 MG PO; +DONE5 PO
== END ==
LOC: LAB 19:23 → LAB SHORT 19:23
DX: N39.0 Urinary tract infection, site not specified (principal)
CPT/HCPCS: 87077; 87086; 87186